=== PATIENT | female | born 1960 | race African-American/Black ===

== ENCOUNTER 2022-10-19 11:28 | Outpatient (CLI) | payer BC | END 2022-10-19 11:29 | disposition home or self-care (01) | LOC: BICMAMMO 11:28 | PROVIDERS: ATTEND Family Medicine | DX: Z12.31 Encounter for screening mammogram for malignant neoplasm of breast (principal) | CPT/HCPCS: 77063; 77067 ==

== ENCOUNTER 2023-03-05 07:30 | Outpatient (CLI) | payer BC | END 2023-03-05 07:31 | disposition home or self-care (01) | LOC: ULT 07:30 | PROVIDERS: ATTEND Internal Medicine Cardiovascular Disease | DX: R09.89 Other specified symptoms and signs involving the circulatory and respiratory systems (principal); M79.669 Pain in unspecified lower leg; I70.203 Unspecified atherosclerosis of native arteries of extremities, bilateral legs | CPT/HCPCS: 93880; 93923 ==